=== PATIENT | male | born 1945 | race Caucasian/White ===

== ENCOUNTER 2019-12-05 13:35 | Emergency (ER) | payer OTHER ==
--- NOTE | 2019-12-05 14:14 | EDM.PDOC ---
ED HPI GENERAL MEDICAL PROBLEM - General Chief Complaint: General Stated Complaint: FELL ROOF, BLURRED VISION, NECK ABOUT A WEEK AGO Time Seen by Provider: 12/05/19 14:00 Source of Information: Reports: Patient, RN. Denies: Old Records History Limitations: Reports: Other (no old records, doesn't know meds) - History of Present Illness INITIAL COMMENTS - FREE TEXT/NARRATIVE: 74 yo male fell off a roof a couple weeks ago from a height of about 15 ft landing on his back. He claims he climbed back onto the roof and kept working after that. He noted some double vision after that fall. More recently he got his on the head by some plywood and his double vision is worse. He also notes that he is more sleepy since the injury. No headache or nausea. No neck or new extremity pain. Today is the first medical care he has sought since the fall. He thinks he is only a baby aspirin with regards to anything that might thin his blood. Onset: Sudden Onset Date: 11/21/19 Duration: Week(s): (2), Getting Worse (got a bit worse with recent episode of plywood hitting his head. 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 [Unable to Verify Home Med List] 12/05/19 [History] ED ROS GENERAL - Review of Systems Review Of Systems: See Below Constitutional: Reports: No Symptoms HEENT: Reports: Vision Change (diplopia) Respiratory: Reports: No Symptoms Cardiovascular: Reports: No Symptoms Endocrine: Reports: No Symptoms GI/Abdominal: Reports: No Symptoms : Reports: No Symptoms Musculoskeletal: Reports: No Symptoms Skin: Reports: No Symptoms Neurological: Reports: Difficulty Walking (not new, has chronic numbness of R foot), Other (more sleepy than usual). Denies: Headache ED EXAM, GENERAL - Physical Exam Exam: See Below Exam Limited By: No Limitations General Appearance: Alert, WD/WN, No Apparent Distress Eye Exam: Bilateral Eye: Normal Inspection Ears: Normal External Exam, Normal Canal, Hearing Grossly Normal Ear Exam: Bilateral Ear: Auricle Normal, Canal Normal Nose: Normal Inspection, No Blood Throat/Mouth: Normal Inspection, Normal Lips, Normal Oropharynx, Normal Voice, No Airway Compromise Head: Atraumatic, Normocephalic Neck: Normal Inspection Respiratory/Chest: No Respiratory Distress, Lungs Clear, Normal Breath Sounds, No Accessory Muscle Use Cardiovascular: Regular Rate, Rhythm, No Edema GI/Abdominal: Normal Bowel Sounds, Soft, Non-Tender, No Distention Back Exam: Normal Inspection. No: CVA Tenderness (R), CVA Tenderness (L) Extremities: Normal Inspection, Normal Range of Motion, Non-Tender, No Pedal Edema Neurological: Alert, Oriented, CN II-XII Intact, Normal Cognition, No Motor/Sensory Deficits Psychiatric: Normal Affect, Normal Mood Skin Exam: Warm, Dry, Intact, Normal Color, No Rash Course - Vital Signs Last Recorded V/S: Last Vital Signs Temp 36.8 C 12/05/19 14:19 Pulse 57 L 12/05/19 14:19 Resp 14 12/05/19 14:19 BP 115/62 12/05/19 14:19 Pulse Ox 95 12/05/19 14:19 - Radiology Interpretation Free Text/Narrative:: CT head- IMPRESSION: No acute intracranial findings. Please note that all CT scans at this facility use dose modulation, iterative reconstruction, and/or weight-based dosing when appropriate to reduce radiation dose to as low as reasonably achievable. Dictated by Mahendra Jansen MD @ Dec 05 2019 2:30PM CT Results Date: 12/05/19 Departure - Departure Time of Disposition: 14:44 Disposition: Home, Self-Care 01 Condition: Good Clinical Impression: Diplopia - Discharge Information *PRESCRIPTION DRUG MONITORING PROGRAM REVIEWED*: Not Applicable *COPY OF PRESCRIPTION DRUG MONITORING REPORT IN PATIENT [facility]: Not Applicable Referrals: PCP,None [Primary Care Provider] - Forms: ED Department Discharge Additional Instructions: Your CT scan did not reveal any problems today. I recommend you follow up with an eye doctor to further evaluate your double vision. Return as needed. Sepsis Event Note (ED) - Focused Exam Vital Signs: Vital Signs Temp Pulse Resp BP Pulse Ox 12/05/19 14:19 36.8 C 57 L 14 115/62 95
--- NOTE | 2019-12-05 14:33 | CRLCT ---
TECHNIQUE: Head CT without intravenous contrast. INDICATION: Diplopia and sleepiness following head injury 2 weeks prior. COMPARISON: None available. FINDINGS: No intracranial hemorrhage, extra-axial collection, or evidence of acute cortical infarction. Age-appropriate ventricles and sulci. No mass effect or midline shift. Orbits and cranium are unremarkable. Scattered mucosal thickening throughout the imaged paranasal sinuses. IMPRESSION: No acute intracranial findings. Please note that all CT scans at this facility use dose modulation, iterative reconstruction, and/or weight-based dosing when appropriate to reduce radiation dose to as low as reasonably achievable. Dictated by Mahendra Jansen MD @ Dec 05 2019 2:30PM Signed by Dr. Mahendra Jansen @ Dec 05 2019 2:33PM
== END 2019-12-05 15:10 | disposition home or self-care (01) ==
LOC: JP.ED 13:35 → MERGE 13:35 → JP.ED 15:10
DX: H53.2 Diplopia (principal); R26.2 Difficulty in walking, not elsewhere classified; R20.0 Anesthesia of skin
CPT/HCPCS: 70450; 99283; 99285-25

== ENCOUNTER 2022-04-20 15:59 | Emergency (ER) | payer OTHER ==
[2022-04-20 16:53] LABS: ESTIMATED GFR 48 mL/min (>60)
[2022-04-20] MEDS ORDERED: Sodium Chloride 0.9% 500 ML IV ONE (16:57)
== END 2022-04-20 18:54 | disposition home or self-care (01) ==
LOC: JP.ED 15:59
DX: E86.0 Dehydration (principal); D61.818 Other pancytopenia; E78.00 Pure hypercholesterolemia, unspecified; I10 Essential (primary) hypertension; K21.9 Gastro-esophageal reflux disease without esophagitis; Z87.891 Personal history of nicotine dependence; Z79.82 Long term (current) use of aspirin; Z79.899 Other long term (current) drug therapy
CPT/HCPCS: 36415; 80048; 80307; 81001; 85025; 99284; J7040